=== PATIENT | male | born 1950 | race Caucasian/White ===

== ENCOUNTER → 2017-04-06 | Outpatient (CLI) | payer OTHER ==
[2017-04-06 08:58] LABS: BLOOD UREA NITROGEN 15 mg/dL (7-22); BUN/CREATININE RATIO 18.75 (6-20); CALCIUM 8.7 mg/dL (8.7-10.7); CHOL/HDL RATIO 3.39 RATIO (0-4.0); EST GLOMERULAR FILTRATION > 60 (>60 ml/min/1.73m(2)); HDL CHOLESTEROL 38 mg/dL (40-150); SERUM ALBUMIN 3.9 g/dL (3.5-4.8); SERUM CHOLESTEROL 129 mg/dL (120-200)
== END ==
LOC: LAB 08:24
PROVIDERS: ATTEND Internal Medicine Cardiovascular Disease
DX: I50.22 Chronic systolic (congestive) heart failure (principal); E78.2 Mixed hyperlipidemia
CPT/HCPCS: 36415; 80053; 80061; 83880

== ENCOUNTER → 2017-04-17 | Outpatient (CLI) | payer OTHER ==
--- NOTE | 2017-04-17 22:53 | DI ---
LEFT TIBIA AND FIBULA, 04/17/2017 1:48 PM: Clinical History: Left leg pain. Previous Exam: None at this facility. AP and lateral views are submitted. The patient is status post ORIF of an old fracture of the distal third of the tibia with placement of an intramedullary hilary. The fracture site has healed with anatomi c alignment and position. There may have been an old proximal fibular fracture as well. Severe arthri tic disease is present in the tibiotalar joint Readin. Status post ORIF of a fracture of the distal tibia with anatomic alignment and position with a pr obable proximal fibular fracture. Both fractures have healed. 2. Severe degenerative arthritic change of the tibiotalar joint.
--- NOTE | 2017-04-17 22:55 | DI ---
LEFT ANKLE, 04/17/2017 1:10 PM: Clinical History: Left ankle pain. Previous Exam: None at this facility. 3 views are submitted. There is an old fracture of the distal tibia that has healed. Arthritic change s are present in the tibiotalar joint. There is osteoporosis, probably from disuse. Reading: Degenerative arthritic disease of the ankle joint. Osteoporosis.
== END ==
LOC: ORTHO 13:36
PROVIDERS: ATTEND Physician Assistant
DX: M25.572 Pain in left ankle and joints of left foot (principal); M79.605 Pain in left leg; M19.072 Primary osteoarthritis, left ankle and foot
CPT/HCPCS: 73590; 73610

== ENCOUNTER → 2017-04-18 | Outpatient (CLI) | payer OTHER ==
[2017-04-18 16:16] LABS: BILIRUBIN,URINE NEGATIVE (NEG); CLARITY,URINE CLEAR (CLEAR); COLOR,URINE YELLOW; GLUCOSE, URINE (UA) NEGATIVE (NEG); NITRATE,URINE NEGATIVE (NEG); OCCULT BLOOD,URINE NEGATIVE (NEG); PROTEIN,URINE NEGATIVE (NEG)
[2017-04-18 16:33] LABS: URINE SAMPLE TYPE CLEAN CATCH URINE
== END ==
LOC: MOB LAB 15:57
PROVIDERS: ATTEND Family Medicine
DX: R35.0 Frequency of micturition (principal); R30.0 Dysuria
CPT/HCPCS: 81003

== ENCOUNTER → 2017-05-04 | Outpatient (CLI) | payer OTHER | LOC: MMPC 10:00 | PROVIDERS: ATTEND Orthopaedic Surgery | DX: M19.072 Primary osteoarthritis, left ankle and foot (principal); Z98.890 Other specified postprocedural states | CPT/HCPCS: 99214; G0463 ==

== ENCOUNTER → 2017-07-03 | Outpatient (CLI) | payer OTHER ==
--- NOTE | 2017-07-03 14:54 | DI ---
XR L-SPINE 2-3 VW,07/03/2017 1:51 PM: Clinical History: Radicular low back pain. Previous Exam: None at this facility. Findings: AP and lateral views of the lumbar spine are obtained, and demonstrate mild compression deformities o f the endplates of L1/2 level. Peripheral vascular calcifications are seen. Degenerative changes of t he facets are noted. There is no evidence of pathologic calcification or obstruction. Impression: Mild endplate compression of the lower endplate of L1 and the upper endplate of L2.
== END ==
LOC: MOB RAD 13:54
PROVIDERS: ATTEND Physician Assistant
DX: M54.16 Radiculopathy, lumbar region (principal); Z72.0 Tobacco use
CPT/HCPCS: 72100

== ENCOUNTER → 2017-07-09 | Outpatient (CLI) | payer OTHER ==
[2017-07-09 10:40] LABS: HEMATOCRIT 42.8 % (42.0-52.0); HEMOGLOBIN 14.8 g/dL (14.0-18.0); MEAN CORPUSCULAR HEMOGLOBIN 29.3 PG (27-31); MEAN CORPUSCULAR HGB CONC 34.6 g/dL (33-37); MEAN CORPUSCULAR VOLUME 84.8 FL (80-90); MEAN PLATELET VOLUME 10.2 FL (7.4-12.2); RED BLOOD COUNT 5.05 10^6/uL (4.70-6.10)
--- NOTE | 2017-07-09 11:26 | EKG ---
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
[2017-07-09 11:47] LABS: BLOOD UREA NITROGEN 14 mg/dL (7-22); CALCIUM 8.8 mg/dL (8.7-10.7); EST GLOMERULAR FILTRATION > 60 (>60 ml/min/1.73m(2)); SERUM ALBUMIN 3.8 g/dL (3.5-4.8)
== END ==
LOC: LAB 10:18
PROVIDERS: ATTEND Orthopaedic Surgery
DX: M12.572 Traumatic arthropathy, left ankle and foot (principal); I45.2 Bifascicular block
CPT/HCPCS: 36415; 80053; 85027; 85610; 85730; 86850; 87641; 93005; 93010

== ENCOUNTER → 2017-07-18 | Outpatient (CLI) | payer OTHER | LOC: MOB LAB 11:09 | PROVIDERS: ATTEND Surgery | DX: R33.9 Retention of urine, unspecified (principal); R35.0 Frequency of micturition; Z12.5 Encounter for screening for malignant neoplasm of prostate | CPT/HCPCS: 36415; G0103 ==

== ENCOUNTER → 2017-07-20 | Outpatient (CLI) | payer OTHER ==
--- NOTE | 2017-07-22 12:50 | DI ---
MRI LUMBAR SPINE SCAN WITHOUT IV CONTRAST, 07/20/2017 10:07 AM: Clinical History: Radicular low back pain. Previous Exam: None. Technique: Sagittal and axial T2 weighted; sagittal T1 weighted and T2 STIR; and axial PD. The vertebral bodies are of normal height and size. There is mild disc space narrowing at L1-2. The r emaining disc spaces are of normal height. All lumbar disc spaces show desiccation change. The cord t erminates at T12. The conus medullaris is normal. The T10-11 through T12-L1 disc spaces are normal. L 1-2 has a very mild circumferentially bulging but not herniated disc. The L2-3 and L3-4 disc spaces a re normal. L4-5 and L5-S1 have bulging but not herniated discs without canal or neural foraminal sten osis. The distal abdominal aorta shows mild fusiform dilatation. The maximum AP and transverse diamet er is 28 mm. Readin. There are bulging but not herniated discs without canal or neural foraminal stenosis at L1-2, L4- 5, and L5-S1. 2. The disc spaces from T10-11 through T12-L1, L2-3, and L3-4 are normal. 3. There is fusiform dilatation of the distal abdominal aorta with a measurement of about 28 mm in d iameter.
== END ==
LOC: MRI 07-17 09:38
PROVIDERS: ATTEND Physician Assistant
DX: M54.16 Radiculopathy, lumbar region (principal); M47.816 Spondylosis without myelopathy or radiculopathy, lumbar region
CPT/HCPCS: 72148

== ENCOUNTER 2017-08-06 05:41 | Inpatient (IN) ==
[~2017-08-06 05:41] MED LIST: ceFAZolin Inj 2gm (Premix) 2 GM/50 ML BAG IV ONE
[2017-08-06] MEDS ORDERED: LIDOCAINE W/ SODIUM BICARB 0.5 ML SYR ONE (06:00)
[2017-08-06] MEDS ORDERED: Lactated Ringers 1,000 ML PRIMARY IV ONE ×3 (06:00→10:23)
[2017-08-06] MEDS ORDERED: ceFAZolin Inj 2gm (Premix) 2 GM/50 ML BAG IV ONE (06:00)
[2017-08-06] MEDS ORDERED: LIDOCAINE W/ SODIUM BICARB 0.5 ML SYR SUBD ONE (06:17)
[2017-08-06] MEDS ORDERED: Lactated Ringers 1,000 ML PRIMARY IV SCH (07:00)
[2017-08-06] MEDS ORDERED: IPRATROPIUM/ALBUTEROL SULFATE 3 ML NEB NEB ONE ×2 (07:03→07:06)
[2017-08-06] MEDS ORDERED: LIDOCAINE 2%/ EPI 1:200,000 - 20 ML VIAL ONE (07:43)
[2017-08-06] MEDS ORDERED: MIDAZOLAM 5 MG/1 ML ONE (07:43)
[2017-08-06] MEDS ORDERED: BUPivacaine Inj 0.5% PF (5mg/ml) 30ml vial ONE (07:44)
[2017-08-06] MEDS ORDERED: fentaNYL Inj 100 MCG/2 ML VIAL ONE ×2 (07:44→08:04)
[2017-08-06] MEDS ORDERED: PROPOFOL IV ONE ×2 (08:00→10:49)
[2017-08-06] MEDS ORDERED: Acetaminophen 1000mg Inj 1,000 MG/100 ML VIAL IV ONE (08:22)
[2017-08-06] MEDS ORDERED: BUPivacaine Inj 0.25% PF - 10ml vial ONE (08:36)
--- NOTE | 2017-08-06 08:41 | CD ---
[facility] [place] Interpretive Statements [id number]
[2017-08-06] MEDS ORDERED: Sodium Chloride 0.9% 100 ML IV ONE (11:05)
[2017-08-06] MEDS ORDERED: Vancomycin Inj 1gm vial ONE (11:05)
[2017-08-06] MEDS ORDERED: TRANEXAMIC ACID 1,000 MG / 10 ML VIAL ONE (11:05)
[2017-08-06] MEDS ORDERED: KETOROLAC 30 MG/1 ML VIAL ONE (11:18)
[2017-08-06] MEDS ORDERED: BUPivacaine Liposome/PF (Exparel) Inj 20ml vial INFIL ONE (11:23)
[2017-08-06] MEDS ORDERED: ONDANSETRON 4 MG/2 ML VIAL IVP PRN (11:50)
[2017-08-06] MEDS ORDERED: HYDROcodone-APAP 5 MG -325 MG TABLET PO PRN (11:50)
[2017-08-06] MEDS ORDERED: NORMAL SALINE 10 ML SYRINGE FLUSH IVP PRN ×2 (11:50→12:03)
--- NOTE | 2017-08-06 11:55 | ORTHO.OP ---
- - -: See Dictated Operative Report
[2017-08-06] MEDS ORDERED: HYDROmorphone 2 MG/1 ML IVP PRN (12:03)
[2017-08-06] MEDS ORDERED: fentaNYL Inj 100 MCG/2 ML VIAL IVP PRN (12:03)
[2017-08-06] MEDS ORDERED: Nalbuphine Inj 20 MG/ML Ampule IVP PRN (12:03)
--- NOTE | 2017-08-06 12:09 | CRNA.PROGR ---
Anesthesia Time - - Start date: 08/06/17 End date: 08/06/17 - Procedure/Recovery Time Anesthesia : Time In: 08:40 Anesthesia : Time Out: 12:04 Anesthesia : Total Time: 204 - Block Time PreOp Block : Time In: 07:40 PreOp Block : Time Out: 07:55 PreOp Block : Total Time: 15 - Total Anesthesia Time Total Anesthesia Time (minutes): 219 - Other Weight: 101.605 kg Height: 5 ft 8 in Body Mass Index (BMI): 34.0 Pain Management: Sciatic Single Nerve Block
--- NOTE | 2017-08-06 12:14 | CRNA.PROCE ---
Central Neuraxis Block Placeor - - Safety Measures: Time Out Taken - - Type of Block: Subarachnoid Reason for Block: Surgical Moniters Used During Block: EKG, SPO2, NIBP Sedation Used - Enter Amount Used in Comment Field: Fentanyl (mcg): Yes (85mcg) Positioning: Sitting Skin Prep Used: ChloroPrep Draped: No Skin Infiltration - Enter Amount Used in Comment Field: 1% Xylocaine (mL): Yes ( skin wheal) Introducer User: None Spinal Needle Used: 22 Qwincke Local Anesthetic - Enter Amount Used in Comment Field: 0.75 % Bupivacaine with Dextrose (ml): Yes (2ml) Anesthesia Time - Other Weight: 101.605 kg Height: 5 ft 8 in Body Mass Index (BMI): 34.0
--- NOTE | 2017-08-06 12:43 | CD ---
[facility] [place] Interpretive Statements [id number]
--- NOTE | 2017-08-06 14:42 | DI ---
XR ANKLE COMPLETE MIN 3VW,08/06/2017 12:57 PM: Clinical History: Left ankle arthritis. Previous Exam: Apr 17 2017 Findings: 3 views of the left ankle are obtained, and demonstrate new postsurgical changes consistent with repl acement of the tibial plateau and the talar dome with arthroplasty. Patient is status post removal of a left tibial intramedullary hilary. Overlying skin shaniqua are noted. Overlying plaster limits fine stephani ny detail. Impression: Status post arthroplasty of the left talar dome and tibial plafond.
[2017-08-06] MEDS ORDERED: ceFAZolin Inj 2gm (Premix) 2 GM/50 ML BAG IV SCH (15:00)
[2017-08-06] MEDS: LISINOPRIL 5 MG TABLET PO SCH (20:06)
[2017-08-06] MEDS ORDERED: Simvastatin Tab 80 MG TAB PO SCH (21:00)
[2017-08-07] MEDS ORDERED: DEXAMETHASONE PF 10 MG/1 ML VIAL IVP PRN (06:00)
[2017-08-07] MEDS ORDERED: LIDOCAINE W/ SODIUM BICARB 0.5 ML SYR SUBCUT ONE (06:00)
[2017-08-07] MEDS ORDERED: ONDANSETRON 4 MG/2 ML VIAL IVP PRN (06:00)
[2017-08-07] MEDS ORDERED: Acetaminophen 1000mg Inj 1,000 MG/100 ML VIAL IV PRN (06:00)
[2017-08-07 07:28] VITALS: RESP 18
[2017-08-07] MEDS ORDERED: ASPIRIN 81 MG (BABY) CHEWABLE TABLET PO SCH (09:00)
[2017-08-07] MEDS ORDERED: METOPROLOL SUCCINATE 25 MG SR 24H TABLET PO SCH (09:00)
[2017-08-07] MEDS ORDERED: LISINOPRIL 5 MG TABLET PO SCH (09:00)
[2017-08-07] MEDS: LISINOPRIL 5 MG TABLET PO SCH (09:34)
[2017-08-07 11:19] VITALS: BP 98/65; TEMP 98.1; O2SAT 90
--- NOTE | 2017-08-07 11:36 | PT.PROG ---
Progress Note Progress Note: S: Ryan reports that he is feeling good today and that he would like to learn how to use the crutches for walking. O: Tx included: gait and stair training with walker and crutches. Ryan ambulated 100ft and 4 stairs with AD. Ryan required mod cuing to follow safety precautions and CGA with all exercises. A: Ryan tolerated therapy well, though he stuggled to follow proper safety precautions with AD. Ryan would therefore benefit from an additional therapy session to practice gait and stair training with AD to ensure he follows proper safety precautions before he is discharged home. P: Continue current POC as tolerated.
[2017-08-23] MEDS ORDERED: fentaNYL Inj 100 MCG/2 ML VIAL IVP PRN (15:14)
[2017-08-23] MEDS ORDERED: Prochlorperazine Edisylate Inj 10mg/2ml vial IVP PRN (15:14)
[2017-08-23] MEDS ORDERED: HYDROmorphone 2 MG/1 ML IVP PRN (15:14)
[2017-08-23] MEDS ORDERED: NORMAL SALINE 10 ML SYRINGE FLUSH IVP PRN (15:14)
[2017-08-23] MEDS ORDERED: Lactated Ringers 1,000 ML PRIMARY IV SCH (15:15)
--- NOTE | 2017-08-24 22:19 | ORTHO.PROG ---
Last Taken Vital Signs: Vital Signs - Last Taken Temperature 98.1 F 08/07/17 11:18 Pulse Rate 97 08/07/17 11:18 Respiratory Rate 18 08/07/17 11:18 Blood Pressure 98/65 08/07/17 11:18 Pulse Ox 90 08/07/17 11:18 Subjective: Pt was admitted for overnight observation due to pain control and need for PT prior to discharge. Pt did well, passed PT and was deemed safe for discharge on POD#1. Discussed with nurse over the phone about care and placed order for discharge.
== END 2017-08-07 15:06 | disposition home or self-care (01) | DRG 470 ==
LOC: OPS 05:41 → MED/SURG 05:41 → OR 05:41 → MED/SURG 12:55 → EDSTATUS 13:20 → UNDODISIN 08-07 15:06
PROVIDERS: ADMIT Orthopaedic Surgery; ATTEND Orthopaedic Surgery